=== PATIENT | female | born 1965 | race Caucasian/White ===

== ENCOUNTER → 2018-10-16 | Outpatient (CLI) | payer BC ==
[~2018-10-16] MED LIST: BARIUM SULFATE 135 ML (E-Z HD) PO ONE; SIMETH/SOD BICARB/CIT AC PKT (E-Z- GAS II) PO ONE
== END | disposition home or self-care (01) ==
LOC: U/S 09:33
PROVIDERS: ATTEND Internal Medicine
DX: R13.10 Dysphagia, unspecified (principal)
CPT/HCPCS: 74240; 76700

== ENCOUNTER 2019-01-06 01:59 | Emergency (ER) | payer BC ==
[~2019-01-06] VITALS: Ht 165.1 cm; Wt 68.3 kg
[2019-01-06 02:09] VITALS: Ht 165.1 cm; Wt 68.3 kg
[2019-01-06] MEDS ORDERED: KETOROLAC 30 MG INJ IM STA (03:26)
--- NOTE | 2019-01-06 03:26 | ERD ---
ER Documentation Chief Complaint Chief Complaint right foot pain, fell from a chair while changing bulb around 1830 HPI There is a 53-year-old female who presents to emerge department with complaints of left leg and left foot pain. Stated that she fell from a 2 foot chair, while changing a bulb at around 1830 today. Stated that this happened while at work. LMP: Denies headache, head injury, loss of consciousness, dizziness, neck pain, neck stiffness, throat pain, difficulty swallowing, difficulty breathing lying flat, shoulder pain, chest pain, back pain, abdominal pain, nausea, vomiting, constipation, diarrhea, urinary symptoms, or possibility being , loss of bowel and bladder control, difficulty walking due to pain, numbness or tingling sensation, calf pain, recent travel, recent major surgery in the last 3 weeks, calf pain, recent long travel, recent exposure to any illness, recent antibiotic use in the last 3 months, fever, chills, seizures. Past medical history: Irregular heartbeat. Chronic lower back pain. Surgical history: Surgery to the spine. Medication: Xanax. Inderal. Social: Denies smoking, use of alcoholic beverages, use of illegal drugs. ROS All systems reviewed and are negative except as per history of present illness. Medications Home Meds Active Scripts Omeprazole* (Omeprazole*) 40 Mg Capsule.dr, 40 MG PO DAILY, #30 CAP Prov:PASILABAN,HORACIOAR F 01/06/19 Cyclobenzaprine Hcl* (Cyclobenzaprine Hcl*) 10 Mg Tablet, 10 MG PO Q8 PRN for MUSCLE SPASMS, #15 TAB Prov:PASILABAN,HORACIOAR F 01/06/19 Ibuprofen* (Motrin*) 800 Mg Tab, 800 MG PO Q8 PRN for PAIN AND OR ELEVATED TEMP, #20 TAB Prov:PASILABAN,KLAR F 01/06/19 Allergies Allergies: Coded Allergies: Penicillins (Verified Allergy, Unknown, rash, 01/06/19) Sulfa (Sulfonamide Antibiotics) (Verified Allergy, Unknown, rash, 01/06/19) PMhx/Soc History of Surgery: Yes (neck fusion, back surgery) Hx Cardiac Disorders: Yes (cholesterol) Hx Miscellaneous Medical Probl: Yes (anxiety, depression) Hx Alcohol Use: No Hx Substance Use: No Hx Tobacco Use: No Smoking Status: Current every day smoker Physical Exam Vitals Physical Exam Const: No acute distress Head: Atraumatic Eyes: Normal Conjunctiva ENT: Normal External Ears, Nose and Mouth. Neck: Full range of motion. No meningismus. Resp: Clear to auscultation bilaterally Cardio: Regular rate and rhythm, no murmurs Abd: Soft, non tender, non distended. Normal bowel sounds Skin: No petechiae or rashes Back: No midline or flank tenderness. C-spine/T-spine/L-spine are midline with good and full range of motion and has no swelling/deformity/bulging/point of tenderness. No saddle anesthesia. No neurovascular deficit. Ext: No cyanosis, or edema. Left tibia and fibula: Tenderness distally. No calf tenderness. Left ankle: Has no obvious deformity but has mild swelling. Full range of motion. Pain with range of motion. Left foot: Pedal pulses within normal limits. No obvious deformity. Tenderness to palpation to dorsal area. Left toes has good and full range of motion. Capillary refills to left lower extremity is less than 2 seconds. Left knee is unremarkable. Bilateral hips are stable and unremarkable. Right lower extremity is unremarkable. No neurovascular deficit. Neur: Awake and alert. No neurological deficit. Psych: Normal Mood and Affect Results 24 hrs Current Medications Medications Dose Sig/Simeon Start Time Status Last (Trade) Ordered Route PRN Stop Time Admin Dose Reason Admin Ketorolac 30 mg ONCE STAT 01/06/19 DC 01/06/19 Tromethamine IM 03:26 01/06/19 03:41 (Toradol) 03:30 Morphine 4 mg ONCE STAT 01/06/19 DC 01/06/19 Sulfate IM 03:30 01/06/19 03:40 (morphine) 03:31 Famotidine 40 mg ONCE ONCE 01/06/19 DC 01/06/19 (Pepcid) PO 04:00 01/06/19 03:40 04:01 Ondansetron 4 mg ONCE STAT 01/06/19 DC 01/06/19 HCl (Zofran ODT 03:37 01/06/19 03:40 Odt) 03:38 Procedures/MDM Diagnostic tests: X-ray of the left tibia and fibula: Unremarkable left tibia and fibula exam. X-ray of the left ankle: Unremarkable left ankle exam. X-ray of the left foot: 1. Negative for fracture, dislocation or other acute process. 2. Mild plantar calcaneal spurring. Treatment: Toradol IM. Morphine IM. Zofran. Pepcid. Re-evaluation: Denies pain. No neurovascular deficits. Ambulatory with steady gait. Stated that she feels much better at this time. Differential diagnosis I have low suspicion for displaced fracture, compartment syndrome, open f racture, DVT. Final diagnosis: Foot Contusion. Prescription: Motrin. Omeprazole. Flexeril. Follow-up with PCP in the next 24-48 hours. PCP to refer patient to vocational rehabilitation specialist in the next 24 to 48 hours. PCP to refer patient to pain specialist in the next 24 to 48 hours. Come back here in the emergency department for any new symptoms or any worsening symptoms. All questions and concerns were answered. Patient and family members verbalized understanding and agreed with plan of care. Hemodynamically stable on discharge. Departure Diagnosis: Primary Impression: Foot pain Additional Impressions: Injury of foot Contusion, foot Condition: Stable Additional Instructions: Follow-up with PCP in the next 24-48 hours. PCP to refer patient to vocational rehabilitation specialist in the next 24 to 48 hours. PCP to refer patient to pain specialist in the next 24 to 48 hours. Come back here in the emergency department for any new symptoms or any worsening symptoms. BENNY MISHRA Jan 06, 2019 03:26
[2019-01-06] MEDS ORDERED: morphine 4 MG/ML VIAL IM STA (03:30)
[2019-01-06] MEDS ORDERED: ONDANSETRON (ODT) 4 MG TAB ODT STA (03:37)
[2019-01-06] MEDS ORDERED: FAMOTIDINE 20 MG TAB PO ONE (04:00)
[2019-01-06] MEDS ORDERED: IBUP800T48 PO (05:35)
[2019-01-06] MEDS ORDERED: CYCL10TA7 PO (05:35)
[2019-01-06] MEDS ORDERED: OMEP40CA6 PO (05:36)
[2019-01-06 05:56] VITALS: BP 128/89; PULSE 68; RESP 18
== END 2019-01-06 05:57 | disposition home or self-care (01) ==
LOC: FTE 01:59
DX: S90.31XA Contusion of right foot, initial encounter (principal); F17.210 Nicotine dependence, cigarettes, uncomplicated; W07.XXXA Fall from chair, initial encounter; Y92.89 Other specified places as the place of occurrence of the external cause
CPT/HCPCS: 73590; 73610; 73630; 96372; 99284; J1885; J2270